=== PATIENT | female | born 1980 | race African-American/Black ===

== ENCOUNTER 2017-03-27 10:55 | Emergency (ER) | payer OTHER, SELFPAY ==
[~2017-03-27 10:55] MED LIST: Mag-Al Plus 1200 MG/1200 MG/120 MG/30 ML UDCUP ONE
[2017-03-27 11:38] LABS: Bilirubin Negative (Negative); Blood, Urine Large (Negative); Glucose, Urine (Dipstick) 500 mg/dL (Negative); Leukocyte Negative (Negative); Nitrite Negative (Negative); Protein, Urine (Dipstick) Negative (Neg-Trace); Urobilinogen 0.2 mg/dL (0.2-1.0)
[2017-03-27] MEDS ORDERED: Ondansetron ODT 4 MG TAB ONE (11:41)
[2017-03-27] MEDS ORDERED: Milk Of Magnesia 30 ML UDCUP ONE (11:41)
[2017-03-27 11:44] LABS: Clarity Hazy (Clear); Specific Gravity, Urine 1.025 (1.002-1.036); WBC/HPF 0-3 HPF (0-3)
[2017-03-27 11:45] LABS: Bacteria/HPF 1+ HPF (None Seen)
[2017-03-27 11:56] LABS: #Basophils 0.1 thou/uL (0.0-0.2); #Eosinphils 0.1 thou/uL (0.0-0.7); #Lymphocytes 2.4 thou/uL (1.20-3.40); #Monocytes 0.4 thou/uL (0.11-0.59); #Neutrophils 4.1 thou/uL (1.40-6.50); %Basophils 0.8 % (0.0-1.0); %Eosinophils 1.6 % (0.0-10.0); %Lymphocytes 33.6 % (21.0-51.0); %Monocytes 5.4 % (0.0-10.0); %Neutrophils 58.6 % (42.0-75.0); Hemoglobin 13.6 g/dL (12.0-16.0); Mean Corpuscular HGB CONC 32.1 g/dL (32.0-36.0); Mean Corpuscular Hemoglobin 28.3 pg (27.0-31.0); Mean Corpuscular Volume 88.1 fl (81.0-99.0); Mean Platelet Volume 8.9 fL (7.4-10.4); Platelet Count 239 thou/uL (130-400); RBC Distribution Width 13.3 % (11.5-14.5); Red Blood Cell (RBC) Count 4.81 mill/uL (4.20-5.40)
[2017-03-27 12:15] LABS: ALT (SGPT) 15 U/L (8-55); AST (SGOT) 8 U/L (5-34); Albumin 3.9 g/dL (3.5-5.0); Alkaline Phosphatase 145 U/L (40-150); Anion Gap 18 mmol/L (10-20); BUN (Urea Nitrogen) 12 mg/dL (7.0-18.7); Bilirubin, Total 0.3 mg/dL (0.2-1.2); Calc. Creatinine Clearance 0 mL/min (70-130); Calcium 9.6 mg/dL (7.8-10.44); Carbon Dioxide 21 mmol/L (22-29); Chloride 97 mmol/L (98-107); Estimated GFR-MDRD 72; Globulin 3.6 g/dL (2.4-3.5); Lipase 44 U/L (8-78); Potassium 3.8 mmol/L (3.5-5.1); Protein, Total 7.5 g/dL (6.0-8.3)
[2017-03-27 12:20] LABS: Pregnancy Test - Urine (BHCG) Negative (Negative); Pregu Control Background? CLEAR/WHITE (CLR/WHITE); Pregu Control Bar Appear? YES (CONTROL BAR); Specific Gravity 1.025 (1.002-1.036)
[2017-03-27 12:24] LABS: Glucose 629 mg/dL (70-105); Sodium 132 mmol/L (136-145)
[2017-03-27] MEDS ORDERED: Insulin Regular 300 UNITS/3 ML VIAL ONE (12:35)
== END 2017-03-27 12:45 | disposition home or self-care (01) ==
LOC: MADERS 10:55
DX: N39.0 Urinary tract infection, site not specified (principal); E11.65 Type 2 diabetes mellitus with hyperglycemia; Z79.4 Long term (current) use of insulin
CPT/HCPCS: 36415; 80053; 81003; 81015; 81025; 83690; 85025; 96372; J1815; Q0162

== ENCOUNTER 2017-08-30 20:41 | Emergency (ER) | payer SELFPAY ==
[2017-08-30] MEDS ORDERED: Clindamycin 150 MG CAP ONE (21:49)
[2017-08-30] MEDS ORDERED: Acetaminophen/Codeine 30-300mg Tablet ONE (21:49)
== END 2017-08-30 21:56 | disposition home or self-care (01) ==
LOC: MADERS 20:41
DX: K04.7 Periapical abscess without sinus (principal); E11.9 Type 2 diabetes mellitus without complications; Z79.4 Long term (current) use of insulin
CPT/HCPCS: 99282

== ENCOUNTER 2021-08-17 18:32 | Emergency (ER) | payer BC, SELFPAY ==
[2021-08-17] MEDS ORDERED: Piperacillin/Tazobactam 4.5 GM VIAL ONE (19:10)
[2021-08-17 20:00] LABS: Hemoglobin 7.6 g/dL (12.0-16.0); Mean Corpuscular HGB CONC 32.3 g/dL (32.0-36.0); Mean Corpuscular Volume 77.3 fL (78.0-98.0); Mean Platelet Volume 5.5 fL (7.4-10.4); Platelet Count 662 thou/uL (130-400); RBC Distribution Width 14.3 % (11.5-14.5); Red Blood Cell (RBC) Count 3.06 mill/uL (4.20-5.40); White Blood Cell (WBC) Count 29.3 thou/uL (4.8-10.8)
[2021-08-17 20:01] LABS: Band 1 % (5-11); Lymphocytes 10 % (21-51); MDiff Complete? YES; Monocytes 4 % (0-10); Neutrophil 85 % (42-75); Platelet Morphology Comment Appears Increased; Stomatocytes SLIGHT = 2-5 cells (100X) (0-1/hpf)
[2021-08-17 20:04] LABS: ALT (SGPT) 12 U/L (8-55); AST (SGOT) 10 U/L (5-34); Albumin 2.4 g/dL (3.5-5.0); Alkaline Phosphatase 194 U/L (40-110); Anion Gap 17 mmol/L (10-20); BUN (Urea Nitrogen) 10 mg/dL (7.0-18.7); Calc. Creatinine Clearance 0 mL/min (70-130); Calcium 8.7 mg/dL (7.8-10.44); Carbon Dioxide 21 mmol/L (22-29); Chloride 101 mmol/L (98-107); Globulin 6.1 g/dL (2.4-3.5); Glucose 394 mg/dL (70-105); Protein, Total 8.5 g/dL (6.0-8.3); Sodium 135 mmol/L (136-145)
[2021-08-17 20:56] LABS: SARS-CoV-2 NAA Rapid Test Not Detected (NotDetected)
== END 2021-08-17 21:43 | disposition short-term general hospital (02) ==
LOC: MADERS 18:32
DX: E11.621 Type 2 diabetes mellitus with foot ulcer (principal); L97.429 Non-pressure chronic ulcer of left heel and midfoot with unspecified severity; A41.9 Sepsis, unspecified organism; M10.9 Gout, unspecified; Z20.822 Contact with and (suspected) exposure to COVID-19
CPT/HCPCS: 80053; 83605; 85025; 87040; 96365; 96367; J2543; J3370; U0002

== ENCOUNTER 2021-09-15 10:03 | Emergency (ER) | payer BC | END 2021-09-15 11:40 | disposition home or self-care (01) | LOC: MADERS 10:03 | DX: T87.81 Dehiscence of amputation stump (principal); E11.9 Type 2 diabetes mellitus without complications; Z79.4 Long term (current) use of insulin | CPT/HCPCS: 99284 ==

== ENCOUNTER 2021-09-19 08:16 | Emergency (ER) | payer BC | END 2021-09-19 09:10 | disposition home or self-care (01) | LOC: MADERS 08:16 | DX: S81.001D Unspecified open wound, right knee, subsequent encounter (principal); E11.9 Type 2 diabetes mellitus without complications; M10.9 Gout, unspecified; Z79.4 Long term (current) use of insulin; Z89.511 Acquired absence of right leg below knee; W19.XXXD Unspecified fall, subsequent encounter | CPT/HCPCS: 99282 ==